=== PATIENT | female | born 1950 | race Two or more races ===

== ENCOUNTER → 2020-11-24 | Outpatient (CLI) | payer OTHER | END | disposition home or self-care (01) | LOC: NUCLEAR 13:47 | PROVIDERS: ATTEND Internal Medicine | DX: M81.0 Age-related osteoporosis without current pathological fracture (principal) ==

== ENCOUNTER 2020-11-29 14:27 | Outpatient (CLI) | payer OTHER | END 2020-11-29 14:41 | disposition home or self-care (01) | LOC: MAMO-SONO 14:27 | PROVIDERS: ATTEND Internal Medicine | DX: N83.292 Other ovarian cyst, left side (principal); N64.89 Other specified disorders of breast; Z12.31 Encounter for screening mammogram for malignant neoplasm of breast; Z80.41 Family history of malignant neoplasm of ovary ==

== ENCOUNTER 2020-12-02 08:07 | Outpatient (CLI) | payer OTHER | END 2020-12-02 08:21 | disposition home or self-care (01) | LOC: SONOGRAMA 08:07 → MAMO-SONO 08:45 | PROVIDERS: ATTEND Obstetrics & Gynecology Obstetrics | DX: R10.13 Epigastric pain (principal) ==

== ENCOUNTER 2022-11-28 10:43 | Outpatient (CLI) | payer OTHER | END 2022-11-28 10:44 | disposition home or self-care (01) | LOC: MAMO-SONO 10:43 | PROVIDERS: ATTEND Internal Medicine | DX: N64.4 Mastodynia (principal); R92.8 Other abnormal and inconclusive findings on diagnostic imaging of breast; Z12.31 Encounter for screening mammogram for malignant neoplasm of breast ==

== ENCOUNTER 2022-11-28 10:46 | Outpatient (CLI) | payer OTHER | END 2022-11-28 10:47 | disposition home or self-care (01) | LOC: NUCLEAR 10:46 | PROVIDERS: ATTEND Internal Medicine | DX: M81.0 Age-related osteoporosis without current pathological fracture (principal) ==

== ENCOUNTER 2023-11-26 18:55 | Emergency (ER) | payer OTHER ==
[~2023-11-26] VITALS: Ht 154.9 cm; Wt 56.2 kg
[2023-11-26] MEDS ORDERED: DEXAMETHASONE SODIUM PHOSPHATE 4 MG/ML VIAL IM STA (20:31)
[2023-11-26] MEDS ORDERED: MEDROLPACK PO (21:48)
== END 2023-11-26 21:50 | disposition home or self-care (01) ==
LOC: ER 18:57
DX: M25.742 Osteophyte, left hand (principal); R22.31 Localized swelling, mass and lump, right upper limb; Z88.0 Allergy status to penicillin; Z88.6 Allergy status to analgesic agent
CPT/HCPCS: 73130; 96372; 99283; J1100

== ENCOUNTER 2024-01-22 10:06 | Outpatient (CLI) | payer OTHER ==
[~2024-01-22 10:06] MED LIST: MEDROLPACK PO
== END 2024-01-22 10:09 | disposition home or self-care (01) ==
LOC: MAMO-SONO 10:06
PROVIDERS: ATTEND Internal Medicine
DX: N64.4 Mastodynia (principal); R92.8 Other abnormal and inconclusive findings on diagnostic imaging of breast; R10.9 Unspecified abdominal pain; D25.9 Leiomyoma of uterus, unspecified; Z12.31 Encounter for screening mammogram for malignant neoplasm of breast